=== PATIENT | female | born 1975 | race Two or more races ===

== ENCOUNTER 2016-11-22 13:54 | Emergency (ER) | payer MEDICAID, OTHER ==
[~2016-11-22] VITALS: Ht 162.6 cm; Wt 80.0 kg
[~2016-11-22 13:54] MED LIST: IBUPROFEN
[2016-11-22] MEDS ORDERED: KETOROLAC 60MG/2ML VIAL IM ONE (16:45)
[2016-11-22 17:05] LABS: BASOPHILS % 0.7 % (0.0-2.0); EOSINOPHILS % 2.7 % (0.0-5.0); HEMATOCRIT. 43.2 % (36.0-48.0); HEMOGLOBIN. 15.2 g/dL (12.0-16.0); LYMPHOCYTES % 37.2 % (20.0-50.0); MEAN CORPUSCULAR HEMOGLOBIN 29.4 pg (28.0-32.0); MEAN CORPUSCULAR VOLUME 83.8 fL (81.0-99.0); MEAN PLATELET VOLUME 7.2 fl (7.4-10.4); MONOCYTES % 6.7 % (2.0-8.0); NEUTROPHILS % 52.7 % (40.0-76.0); PLATELET 311 x1000/uL (130-400); RED BLOOD CELL COUNT 5.16 mill/uL (4.2-5.4); RED CELL DISTRIBUTION WIDTH 14.2 % (11.6-14.6)
[2016-11-22 17:14] LABS: CARBON DIOXIDE 33 mEq/L (21-32); CHLORIDE 98 mEq/L (98-107)
[2016-11-22 17:17] LABS: TROPONIN I < 0.02 ng/mL (0.00-0.04)
[2016-11-22 19:24] VITALS: BP 148/85
== END 2016-11-22 19:52 | disposition home or self-care (01) ==
LOC: ER 14:00
DX: R51 Headache (principal); R19.7 Diarrhea, unspecified; H66.91 Otitis media, unspecified, right ear; Z91.018 Allergy to other foods
CPT/HCPCS: 36415; 71010; 80053; 81025; 84484; 85025; 93005; 96372; 99285; J1885; Z7610

== ENCOUNTER 2018-12-05 15:40 | Emergency (ER) | payer MEDICAID, OTHER ==
[~2018-12-05] VITALS: Ht 162.6 cm; Wt 77.0 kg
[2018-12-05] MEDS ORDERED: ACETAMINOPHEN 325MG TABLET PO ONE (16:45)
[2018-12-05 17:04] LABS: BASOPHILS % 0.5 % (0.0-2.0); EOSINOPHILS % 3.2 % (0.0-5.0); HEMATOCRIT. 35.1 % (36.0-48.0); HEMOGLOBIN. 12.5 g/dL (12.0-16.0); LYMPHOCYTES % 34.6 % (20.0-50.0); MEAN CORPUSCULAR HEMOGLOBIN 29.4 pg (28.0-32.0); MEAN CORPUSCULAR VOLUME 82.9 fL (81.0-99.0); MEAN PLATELET VOLUME 7.2 fl (7.4-10.4); MONOCYTES % 8.1 % (2.0-8.0); NEUTROPHILS % 53.6 % (40.0-76.0); PLATELET 301 x1000/uL (130-400); RED BLOOD CELL COUNT 4.24 mill/uL (4.2-5.4); RED CELL DISTRIBUTION WIDTH 14.4 % (11.6-14.6)
[2018-12-05 17:10] LABS: CHLORIDE 104 mEq/L (98-107)
[2018-12-05 20:06] VITALS: BP 141/79
== END 2018-12-05 22:49 | disposition home or self-care (01) ==
LOC: ER 15:40
DX: R07.89 Other chest pain (principal); E11.9 Type 2 diabetes mellitus without complications; I10 Essential (primary) hypertension; Z88.8 Allergy status to other drugs, medicaments and biological substances
CPT/HCPCS: 36415; 71045; 83880; 84484; 85379; 93005; 99284

== ENCOUNTER 2019-08-27 12:06 | Emergency (ER) | payer OTHER ==
[~2019-08-27] VITALS: Ht 162.6 cm; Wt 77.0 kg
[2019-08-27] MEDS ORDERED: IBUPROFEN 600MG TABLET PO ONE (15:30)
[2019-08-27 15:51] VITALS: BP 142/90
== END 2019-08-27 15:45 | disposition home or self-care (01) ==
LOC: ER 12:06
DX: J02.9 Acute pharyngitis, unspecified (principal); E11.9 Type 2 diabetes mellitus without complications; I10 Essential (primary) hypertension
CPT/HCPCS: 71045; 81025; 99283

== ENCOUNTER 2021-11-30 14:05 | Emergency (ER) | payer OTHER ==
[~2021-11-30] VITALS: Ht 165.1 cm; Wt 75.0 kg
[2021-11-30 14:23] VITALS: BP 158/106
== END 2021-11-30 19:25 | disposition left against medical advice (07) ==
LOC: ER 14:05
DX: Z53.21 Procedure and treatment not carried out due to patient leaving prior to being seen by health care provider (principal)